=== PATIENT | male | born 1970 | race Caucasian/White ===

== ENCOUNTER 2017-07-18 03:58 | Emergency (ER) | payer OTHER ==
[2017-07-18 05:06] VITALS: BP 137/90; PULSE 78; TEMP 97.9; BMI 44.0
--- NOTE | 2017-07-18 05:06 | PDOC ---
History of Present Illness - General Chief Complaint: Eye Problem Stated Complaint: EYE PROBLEM History Source: Patient Exam Limitations: No Limitations - History of Present Illness Initial Comments: 07/18/17 05:00 Patient is a 47 year old male with no kidney stent, kidney stone, lithotripsy c/ o left upper eye lid swelling x 1 day. States he woke up with swelling to the left upper eye lid, which progressively worsened throughout the day. This morning he became even more swelling and was matted shut with yellow discharge, and some itching to the eye. He has been using warm compresses to the eye without any relief of symptoms. No fever, chills, pain in movement of the eye. PMD: In [place] PMHX: as above PsocHx: neg etoh, drug, cig ALL: NKDA GENERAL/CONSTITUTIONAL: [No fever or chills. No weakness. No weight change.] HEAD, EYES, EARS, NOSE AND THROAT: [No change in vision. No ear pain or discharge. No sore throat.] CARDIOVASCULAR: [No chest pain or shortness of breath.] RESPIRATORY: [No cough, wheezing, or hemoptysis.] GASTROINTESTINAL: [No nausea, vomiting, diarrhea or constipation. No rectal bleeding.] GENITOURINARY: [No dysuria, frequency, or change in urination.] MUSCULOSKELETAL: [No joint or muscle swelling or pain. No neck or back pain.] SKIN AND BREASTS: [No rash or easy bruising.] NEUROLOGIC: [No headache, vertigo, loss of consciousness, or loss of sensation.] PSYCHIATRIC: [No depression or anxiety.] ENDOCRINE: [No increased thirst. No abnormal weight change.] HEMATOLOGIC/LYMPHATIC: [No anemia, easy bleeding, or history of blood clots.] ALLERGIC/IMMUNOLOGIC: [No hives or skin allergy. No latex allergy.] GENERAL: [The patient is awake, alert, and fully oriented, in no acute distress. ] HEAD: [Normal with no signs of trauma.] EYES: [Pupils equal, round and reactive to light, extraocular movements intact, sclera anicteric, conjunctiva clear (+) upper like with small area on the lid with small amount of yellow discharge, (+) moderated erythema and swelling] VA: 20/20 ENT: [Ears normal, nares patent, oropharynx clear without exudates. Moist mucous membranes.] NECK: [Normal range of motion, supple without lymphadenopathy, JVD, or masses.] LUNGS: [Breath sounds equal, clear to auscultation bilaterally. No wheezes, and no crackles.] HEART: [Regular rate and rhythm, normal S1 and S2 without murmur, rub.] ABDOMEN: [Soft, nontender, normoactive bowel sounds. No guarding, no rebound. No masses.] EXTREMITIES: [Normal range of motion, no edema. No clubbing or cyanosis. No cords, erythema, or tenderness.] NEUROLOGICAL: [Cranial nerves II through XII grossly intact. Normal speech, normal gait.] PSYCH: [Normal mood, normal affect.] Past History - Past Medical History Allergies/Adverse Reactions: Allergies Allergy/AdvReac Type Severity Reaction Status Date / Time No Known Allergies Allergy Verified 07/18/17 04:29 Home Medications: Ambulatory Orders No Home Medications 0 dose .ROUTE UTDICT 05/09/13 Cephalexin [Keflex] 500 mg PO TID #7 capsule 07/18/17 Kidney Stones: Yes (@ 2006) - Suicide/Smoking/Psychosocial Hx Smoking Status: Yes Smoking History: Unknown if ever smoked Number of Cigarettes Smoked Daily: 0 Hx Alcohol Use: No Drug/Substance Use Hx: No *Physical Exam - Vital Signs Last Vital Signs Temp Pulse Resp BP Pulse Ox 97.9 F 78 14 137/90 96 07/18/17 04:30 07/18/17 04:30 07/18/17 04:30 07/18/17 04:30 07/18/17 04:30 Medical Decision Making - Medical Decision Making 07/18/17 05:06 Patient is a 47 year old male with no pmhx c/o left upper eye lid swelling x 1 day consistent with infected stye. Keflex 500mg po inst with warm compress 07/18/17 05:08 I discussed the physical exam findings, ancillary test results and final diagnoses with the patient. I answered all of the patient's questions. The patient was satisfied with the care received and felt comfortable with the discharge plan and treatment plan. The Patient agrees to follow up with the primary care physician within 24-72 hours. *DC/Admit/Observation/Transfer Diagnosis at time of Disposition: Infection Stye Qualifiers: Laterality: left Eyelid: upper Qualified Code(s): H00.014 - Hordeolum externum left upper eyelid - Discharge Dispostion Disposition: HOME Condition at time of disposition: Stable - Prescriptions Prescriptions: Cephalexin [Keflex] 500 mg PO TID #7 capsule - Referrals Referrals: Tico Umana [Staff Physician] - - Patient Instructions Printed Discharge Instructions: DI for Blepharitis Additional Instructions: Your Discharge Instructions: You must call primary care physician within 24 hours to arrange follow-up. Return to the Emergency Department with any new, persistent or worsening symptoms, for fever, chills, SOB, dizziness or any other concerning changes that may occur. Continue warm compresses to the eye intermittently 20 minutes on and off - Post Discharge Activity Forms/Work/School Notes: Back to Work
[2017-07-18] MEDS ORDERED: CEPHALEXIN MONOHYDRATE 250 MG CAPSULE (FP) ONE (05:10)
[2017-07-18] MEDS ORDERED: CEPHALEXIN MONOHYDRATE 500 MG CAPSULE (UD) PO ONE (05:12)
== END 2017-07-18 05:24 | disposition home or self-care (01) ==
LOC: JER 03:58
DX: H00.014 Hordeolum externum left upper eyelid (principal)
CPT/HCPCS: 99282-25

== ENCOUNTER 2017-11-29 12:01 | Emergency (ER) | payer OTHER ==
[2017-11-29 12:20] VITALS: BP 140/98; PULSE 79; TEMP 98.5; BMI 45.1
--- NOTE | 2017-11-29 12:46 | PDOC ---
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 Patient states over the weekend he had headache and his family member checked his blood pressure and told him his blood pressure was 200s/100s. He did not think at that time and then when he came to work today was evaluated at [employer] [facility] and was noted to have a systolic blood pressure in the 170s. Patient was sent to the emergency department for evaluation. Arrival in the emergency room his blood pressure is 140/98. Patient denies LOC see THIS time. Past History - Past Medical History Allergies/Adverse Reactions: Allergies Allergy/AdvReac Type Severity Reaction Status Date / Time No Known Allergies Allergy Verified 07/18/17 04:29 Home Medications: Ambulatory Orders NK [No Known Home Medication] 11/29/17 CVA: No COPD: No Kidney Stones: Yes (@ 2006) - Suicide/Smoking/Psychosocial Hx Smoking Status: Yes Smoking History: Never smoked Have you smoked in the past 12 months: No Number of Cigarettes Smoked Daily: 0 Information on smoking cessation initiated: No Hx Alcohol Use: No Drug/Substance Use Hx: No Substance Use Type: None Review of Systems - Review of Systems Able to Perform ROS?: Yes Is the patient limited Maltese proficient: No All Other Systems: Reviewed and Negative *Physical Exam - Vital Signs Last Vital Signs Temp Pulse Resp BP Pulse Ox 98.5 F 79 20 140/98 99 11/29/17 12:15 11/29/17 12:15 11/29/17 12:15 11/29/17 12:15 11/29/17 12:15 - Physical Exam General Appearance: Yes: Appropriately Dressed. No: Apparent Distress HEENT: positive: Normal ENT Inspection Neck: positive: Trachea midline, Supple Respiratory/Chest: positive: Lungs Clear, Normal Breath Sounds. negative: Respiratory Distress, Accessory Muscle Use Cardiovascular: positive: Regular Rhythm, Regular Rate. negative: Murmur Medical Decision Making - Medical Decision Making 11/29/17 12:45 A/P: 47-year-old male without medical history presents with a symptomatically hypertension Exam is within normal limits Urinalysis- negative Lifestyle modifications discussed with patient who verbalized understanding. Patient will be given referral to primary doctor for reevaluation and potential initiation of medications. Patient verbalizes understanding of discharge instructions. *DC/Admit/Observation/Transfer Diagnosis at time of Disposition: Asymptomatic hypertension - Discharge Dispostion Disposition: HOME Condition at time of disposition: Stable Decision to Admit order: No - Referrals Referrals: ON STAFF,NOT [Primary Care Provider] - David Tidwell MD [Staff Physician] - - Patient Instructions Printed Discharge Instructions: DI for High Blood Pressure Additional Instructions: Lifestyle modifications are the first step in blood pressure management. Try taking long walks, walking dog, ride a bicycle or any other low impact exercise. Slowly progress as tolerated. You may also need medications in the future. Please make an appointment with your regular doctor or at the physician whose name has been provided. Return to the emergency department for chest pain, shortness of breath, dizziness, blurry vision, headache, lightheadedness or any other concerns. - Post Discharge Activity
[2017-11-29 13:02] LABS: URINE APPEARANCE CLOUDY; URINE BILIRUBIN NEGATIVE (<2.0 mg/dL); URINE COLOR AMBER; URINE GLUCOSE (UA) NEGATIVE (NEGATIVE); URINE KETONE NEGATIVE (NEGATIVE); URINE LEUK ESTERASE NEGATIVE (NEGATIVE); URINE NITRITE NEGATIVE (NEGATIVE); URINE PROTEIN NEGATIVE (NEGATIVE); URINE UROBILINOGEN NEGATIVE mg/dL (0.2-1.0)
== END 2017-11-29 13:19 | disposition home or self-care (01) ==
LOC: JERFT 12:01
DX: I10 Essential (primary) hypertension (principal)
CPT/HCPCS: 81003; 99281-25

== ENCOUNTER 2018-11-24 06:00 | Emergency (ER) | payer OTHER ==
[2018-11-24 06:25] VITALS: BP 143/89; PULSE 65; TEMP 98.2; BMI 39.1
[2018-11-24] MEDS ORDERED: AMOX TR/POT CLAV 875MG/125MG TABLETS (FP) PO ONE (06:38)
--- NOTE | 2018-11-24 06:43 | PDOC ---
History of Present Illness - General Chief Complaint: Eye Problem Stated Complaint: RIGH EYE SWELLING AND IRITATION Time Seen by Provider: 11/24/18 06:17 History Source: Patient Exam Limitations: No Limitations Past History - Past Medical History Allergies/Adverse Reactions: Allergies Allergy/AdvReac Type Severity Reaction Status Date / Time No Known Allergies Allergy Verified 11/24/18 06:15 Home Medications: Ambulatory Orders Amoxicillin/Potassium Clav [Augmentin 875-125 Tablet] 1 each PO BID #14 tablet 11/24/18 CVA: No COPD: No Kidney Stones: Yes (@ 2006) - Immunization History Immunization Up to Date: Yes - Suicide/Smoking/Psychosocial Hx Smoking Status: Yes Smoking History: Never smoked Have you smoked in the past 12 months: No Number of Cigarettes Smoked Daily: 0 Information on smoking cessation initiated: No Hx Alcohol Use: No Drug/Substance Use Hx: No Substance Use Type: None *Physical Exam - Vital Signs Last Vital Signs Temp Pulse Resp BP Pulse Ox 98.2 F 65 18 143/89 99 11/24/18 06:19 11/24/18 06:19 11/24/18 06:19 11/24/18 06:19 11/24/18 06:19 - Physical Exam General Appearance: No: Apparent Distress HEENT: positive: EOMI, FLOWER, Other (+R upper eyelid swelling and minimal erythema, no eye injection, no discharge, no pain on eye movement) Respiratory/Chest: positive: Lungs Clear, Normal Breath Sounds. negative: Respiratory Distress Cardiovascular: positive: Regular Rhythm, Regular Rate, S1, S2. negative: Murmur Integumentary: positive: Normal Color Neurologic: positive: Alert, Normal Mood/Affect Medical Decision Making - Medical Decision Making 48 y/o M hx of HTN, employee here, presents with R upper eyelid swelling which he woke up with today. Denies eye pain, photophobia, FB sensation, blurred vision, pain on eye movement, discharge, recent URI. Patient was seen here 1 year ago for similar sxs and discharged on Keflex Possible developing periorbital cellulitis Plan: Augmentin 11/24/18 06:39 *DC/Admit/Observation/Transfer Diagnosis at time of Disposition: Periorbital cellulitis of right eye - Discharge Dispostion Disposition: HOME Condition at time of disposition: Stable Decision to Admit order: No - Prescriptions Prescriptions: Amoxicillin/Potassium Clav [Augmentin 875-125 Tablet] 1 each PO BID #14 tablet - Referrals - Patient Instructions Additional Instructions: Thank you for choosing [facility]. It was a pleasure taking care of you. Please take the antibiotics as prescribed. Follow-up with your doctor in 2 days Return to the Emergency Department if your symptoms worsen or persist, you have fever, pain on eye movement, worsening swelling, changes in vision or other concerning symptoms. - Post Discharge Activity
[2018-11-24] MEDS ORDERED: AMOX TR/POT CLAV 875MG/125MG TABLETS (FP) ONE (06:45)
--- NOTE | 2018-11-24 07:26 | PDOC ---
*Physical Exam - Vital Signs Last Vital Signs Temp Pulse Resp BP Pulse Ox 98.2 F 65 18 143/89 99 11/24/18 06:19 11/24/18 06:19 11/24/18 06:19 11/24/18 06:19 11/24/18 06:19 ED Treatment Course - Medications Given in the ED: ED Medications Discontinued Medications Generic Name Dose Route Start Last Admin Trade Name Freq PRN Reason Stop Dose Admin Amoxicillin/Clavulanate Potassium 1 tab 11/24/18 06:38 11/24/18 06:46 Augmentin - 875mg Tablet PO 11/24/18 06:39 1 tab ONCE ONE Administration Medical Decision Making - Medical Decision Making 11/24/18 07:25 Case discussed with YANET Meehan Agree with assessment and plan *DC/Admit/Observation/Transfer Diagnosis at time of Disposition: Periorbital cellulitis of right eye - Discharge Dispostion Disposition: HOME - Prescriptions Prescriptions: Amoxicillin/Potassium Clav [Augmentin 875-125 Tablet] 1 each PO BID #14 tablet - Referrals - Patient Instructions Additional Instructions: Thank you for choosing [facility]. It was a pleasure taking care of you. Please take the antibiotics as prescribed. Follow-up with your doctor in 2 days Return to the Emergency Department if your symptoms worsen or persist, you have fever, pain on eye movement, worsening swelling, changes in vision or other concerning symptoms. - Post Discharge Activity
== END 2018-11-24 06:49 | disposition home or self-care (01) ==
LOC: JER 06:00
DX: L03.213 Periorbital cellulitis (principal); I10 Essential (primary) hypertension
CPT/HCPCS: 99281-25

== ENCOUNTER 2019-04-09 03:48 | Emergency (ER) | payer OTHER ==
[2019-04-09 04:44] VITALS: BP 133/91; PULSE 78; TEMP 98; BMI 42.5
--- NOTE | 2019-04-09 05:08 | PDOC ---
Attending Attestation - Resident Resident Name: Karen Garcia - ED Attending Attestation I have performed the following: I have examined & evaluated the patient, The case was reviewed & discussed with the resident, I agree w/resident's findings & plan - HPI HPI: 04/09/19 05:25 Pt comes with 2 days of shingles in the right C8 and T1 dermatomes - Physicial Exam PE: 04/09/19 05:26 Pt has extensive shingles on the right C8T1 dermatomes. Pt has normal exam otherwise. He has no fever; complainig of burning sensation - Medical Decision Making 04/09/19 05:43 Pt comes with shingles. HE will follow with PMD Yaw, and he will be given 10 days off and he is to follow with PMD for return to work instructions.
[2019-04-09] MEDS ORDERED: valACYclovir HCL 1000 MG TABLET PO ONE (05:19)
--- NOTE | 2019-04-09 05:20 | PDOC ---
History of Present Illness - General Chief Complaint: Rash Stated Complaint: RASH Time Seen by Provider: 04/09/19 04:51 Past History - Past Medical History Allergies/Adverse Reactions: Allergies Allergy/AdvReac Type Severity Reaction Status Date / Time No Known Allergies Allergy Verified 04/09/19 04:43 Home Medications: Ambulatory Orders Amoxicillin/Potassium Clav [Augmentin 875-125 Tablet] 1 each PO BID #14 tablet 11/24/18 Oxycodone HCl/Acetaminophen [Percocet 5/325 -] 1 tab PO Q6H #12 tablet MDD 4 01/19 Valacyclovir HCl [Valtrex] 1,000 mg PO TID 7 Days #21 tablet 04/09/19 CVA: No COPD: No Kidney Stones: Yes (@ 2006) - Immunization History Immunization Up to Date: Yes - Psycho Social/Smoking Cessation Hx Smoking Status: Yes Smoking History: Never smoked Have you smoked in the past 12 months: No Number of Cigarettes Smoked Daily: 0 Hx Alcohol Use: No Drug/Substance Use Hx: No Substance Use Type: None *Physical Exam - Vital Signs Last Vital Signs Temp Pulse Resp BP Pulse Ox 98 F 78 18 133/91 97 04/09/19 03:48 04/09/19 03:48 04/09/19 03:48 04/09/19 03:48 04/09/19 03:48 Medical Decision Making - Medical Decision Making 04/09/19 05:20 48yo M Discharge - Discharge Information Problems reviewed: Yes Clinical Impression/Diagnosis: Shingles Condition: Stable Disposition: HOME - Admission No - Additional Discharge Information Prescriptions: Oxycodone HCl/Acetaminophen [Percocet 5/325 -] 1 tab PO Q6H #12 tablet MDD 4 Valacyclovir HCl [Valtrex] 1,000 mg PO TID 7 Days #21 tablet - Follow up/Referral Referrals: David Tidwell MD [Primary Care Provider] - - Patient Discharge Instructions Patient Printed Discharge Instructions: DI for Shingles Additional Instructions: You have been seen in the Emergency Department for your rash. Your rash and pain is due to Shingles. We have sent a prescription for an antiviral medication to your pharmacy - take 1000mg three times a day for 7 days. Shingles is very contagious. It is important to stay home until your rash has crusted over and your primary care doctor clears you to avoid infecting others with the virus. It is especially important to stay away from those who are very vulnerable to this virus, including women, babies, elderly, immunocompromised, or people who have not had chickenpox or the vaccine. If you experience pain, you can take Tylenol or Ibuprofen as directed on the medication bottle, but do not exceed 3g of Ibuprofen or 4g of Tylenol a day. If you experience itching, you can use wet compresses, oatmeal baths, or calamine lotions. Return to the ED immediately if you experience worsening pain not controlled by over the counter medications, rash on your face or head (especially near the eye ), warmth or discharge from the rash, fever, vomiting, lightheadedness, or any other new or worsening symptom. - Post Discharge Activity Work/Back to School Note: Back to Work
[2019-04-09] MEDS ORDERED: KETOROLAC TROMETHAMINE 60 MG/2 ML VIAL IM ONE (05:46)
== END 2019-04-09 06:09 | disposition home or self-care (01) ==
LOC: JER 03:48
PROC: 3E0233Z Introduction of Anti-inflammatory into Muscle, Percutaneous Approach (ICD-10-PCS; principal; 2019-04-09)
DX: B02.9 Zoster without complications (principal)
CPT/HCPCS: 99281-25

== ENCOUNTER 2020-06-25 07:47 | Emergency (ER) | payer OTHER ==
[2020-06-25 08:07] VITALS: BP 157/85; PULSE 86; TEMP 98.2; BMI 45.1
[2020-06-25] MEDS ORDERED: KETOROLAC TROMETHAMINE 30 MG/1 ML VIAL IM ONE (08:13)
== END 2020-06-25 11:12 | disposition home or self-care (01) ==
LOC: JERFT 07:47 → JER 07:47 → JERFT 11:12
PROC: 3E0233Z Introduction of Anti-inflammatory into Muscle, Percutaneous Approach (ICD-10-PCS; principal; 2020-06-25)
DX: S80.12XA Contusion of left lower leg, initial encounter (principal)
CPT/HCPCS: 73110-TC-LT-FY; 73130-TC-LT-FY; 73560-TC-LT-FY; 73590-TC-LT-FY; 99285-25

== ENCOUNTER 2021-03-02 05:40 | Emergency (ER) | payer OTHER ==
[2021-03-02 06:05] VITALS: BP 154/96; PULSE 79; TEMP 98.1; BMI 45.1
[2021-03-02] MEDS ORDERED: ACETAMINOPHEN 325 MG TABLET (FP) PO ONE (07:06)
[2021-03-02] MEDS ORDERED: PSEUDOEPHEDRINE HCL 30 MG TABLET PO ONE (07:14)
[2021-03-02] MEDS ORDERED: ACETAMINOPHEN 325 MG TABLET (FP) ONE (07:15)
[2021-03-02] MEDS ORDERED: PSEUDOEPHEDRINE HCL 30 MG TABLET PO SCH (07:15)
== END 2021-03-02 07:10 | disposition home or self-care (01) ==
LOC: JER 05:40
DX: R05 Cough (principal)
CPT/HCPCS: 87804; 87807; 99284-25; C9803; U0003; U0005

== ENCOUNTER 2022-03-12 04:37 | Day surgery (SDC) | payer OTHER ==
[2022-03-11 14:14] VITALS: BMI 30.8
[2022-03-12 08:29] VITALS: TEMP 97.7
[2022-03-12 09:17] VITALS: RESP 16
[2022-03-12 10:29] VITALS: BP 111/72; PULSE 70
== END 2022-03-12 09:11 | disposition home or self-care (01) ==
LOC: JASU-ENDO 04:37
PROVIDERS: ATTEND Internal Medicine Gastroenterology
PROC: 0DBL8ZX Excision of Transverse Colon, Via Natural or Artificial Opening Endoscopic, Diagnostic (ICD-10-PCS; 2022-03-12)
PROC: 0DBH8ZX Excision of Cecum, Via Natural or Artificial Opening Endoscopic, Diagnostic (ICD-10-PCS; 2022-03-12)
PROC: 0DBM8ZX Excision of Descending Colon, Via Natural or Artificial Opening Endoscopic, Diagnostic (ICD-10-PCS; principal; 2022-03-12 08:00)
DX: Z12.11 Encounter for screening for malignant neoplasm of colon (principal); D12.0 Benign neoplasm of cecum; D12.4 Benign neoplasm of descending colon; D12.3 Benign neoplasm of transverse colon; K64.8 Other hemorrhoids; K57.30 Diverticulosis of large intestine without perforation or abscess without bleeding
CPT/HCPCS: 88305-TC

== ENCOUNTER 2022-09-12 03:30 | Emergency (ER) | payer OTHER ==
[2022-09-12 03:37] VITALS: BP 157/100; PULSE 88; RESP 18; TEMP 98.6; BMI 45.9
[2022-09-12] MEDS ORDERED: ACETAMINOPHEN 500 MG TABLET (FP) PO ONE (04:37)
[2022-09-12] MEDS ORDERED: ACETAMINOPHEN 325 MG TABLET (FP) ONE (04:40)
== END 2022-09-12 05:04 | disposition home or self-care (01) ==
LOC: JER 03:30
DX: U07.1 COVID-19 (principal); R05.1 Acute cough; R50.9 Fever, unspecified
CPT/HCPCS: 0241U-QW; 99283-25

== ENCOUNTER 2023-09-20 05:17 | Emergency (ER) | payer OTHER ==
[2023-09-20 05:22] VITALS: RESP 20; TEMP 98.9; BMI 46.6
[2023-09-20 07:07] LABS: THROAT:GRP A STREP NOT DETECTED (NOTDETECTED)
[2023-09-20 08:05] VITALS: BP 133/82; PULSE 91
== END 2023-09-20 08:05 | disposition home or self-care (01) ==
LOC: JER 05:17
DX: J02.9 Acute pharyngitis, unspecified (principal); J06.9 Acute upper respiratory infection, unspecified; U07.1 COVID-19; R53.1 Weakness; R53.83 Other fatigue; R09.81 Nasal congestion; R05.9 Cough, unspecified; R52 Pain, unspecified
CPT/HCPCS: 0241U-QW; 87651; 99283-25